=== PATIENT | male | born 1970 | race Two or more races ===

== ENCOUNTER 2024-06-18 20:17 | Inpatient (IN) | payer OTHER ==
[~2024-06-18] VITALS: Ht 175.3 cm; Wt 96.0 kg
[2024-06-18] MEDS: SODIUM CHLORIDE 0.9% 1,000 ML IV ONE (20:56)
--- NOTE | 2024-06-18 20:56 | ED.PDOC ---
History of Present Illness HPI Comments 53-year-old male came to ER for high blood pressure. Patient has a history of hypertension, takes losartan for it. For the past few hours, patient has been experiencing headaches, nape pain, nausea and numbness/ tingling of both upper extremities. Blood pressure taken at home showed 209/90 mmHg, Upon arrival at ER blood pressure was 239/103 mmHg and was bradycardic at 40's. Chief Complaint: High Blood Pressure Time Seen by MD: 20:56 Reviewed Notes: Nurses Notes Allergies: Coded Allergies: NO KNOWN ALLERGIES (Unverified , 06/18/24) Information Source: Patient Mode of Arrival: Ambulatory Severity: Moderate Timing: Hours Duration: Since onset Prehospital treatment: None Past Medical History PAST MEDICAL HISTORY: HTN Surgical History: Denies all surgeries Family History Family History: Reviewed,noncontributory to illness Social History Smoker: Non-Smoker Alcohol: Denies ETOH Use Drugs: Denies Drug Use Lives In: Home Constitutional: denies: chills, diaphoresis, fatigue, fever, malaise, sweats, weakness, others EENTM: denies: blurred vision, double vision, ear bleeding, ear discharge, ear drainage, ear pain, ear ringing, eye pain, eye redness, hearing loss, mouth pain, mouth swelling, nasal discharge, nose bleeding, nose congestion, nose pain, photophobia, tearing, throat pain, throat swelling, voice changes, others Respiratory: denies: cough, hemoptysis, orthopnea, SOB at rest, shortness of breath, SOB with excertion, stridor, wheezing, others Cardiovascular: denies: chest pain, dizzy spells, diaphoresis, Dyspnea on exertion, edema, irregular heart beat, left arm pain, lightheadedness, palpitations, PND, syncope, others Gastrointestinal: reports: nausea; denies: abdomen distended, abdominal pain, blood streaked bowels, constipated, diarrhea, dysphagia, difficulty swallowing, hematemesis, melena, poor appetite, poor fluid intake, rectal bleeding, rectal pain, vomiting, others Genitourinary: denies: burning, dysuria, flank pain, frequency, hematuria, incontinence, penile discharge, penile sore, pain, testicle pain, testicle swelling, urgency, others Neurological: reports: headache, numbness, tingling; denies: dizziness, fainting, left sided numbness, left sided weakness, paresthesia, pre-existing deficit, right sided numbness, right sided weakness, seizure, speech problems, tremors, weakness, others Musculoskeletal: reports: neck pain; denies: back pain, gout, joint pain, joint swelling, muscle pain, muscle stiffness, others Integumetry: denies: bruises, change in color, change in hair/nails, dryness, laceration, lesions, lumps, rash, wounds, others Allergic/Immunocompromised: denies: Difficulty Healing, Frequent Infections, Hives, Itching, others Hematologic/Lymphatic: denies: anemia, blood clots, easy bleeding, easy bruising, swollen glands, others Endocrine: denies: excessive hunger, excessive sweating, excessive thirst, excessive urination, flushing, intolerance to cold, intolerance to heat, unexplained weight gain, unexplained weight loss, others Psychiatric: denies: anxiety, bipolar disorder, depression, hopeless, panic disorder, schizophrenia, sleepless, suicidal, others Physical Exam General Appearance: No Apparent Distress, Normal HEENT: Normal ENT Inspection, Pharynx Normal, TMs Normal Neck: Full Range of Motion, Non-Tender, Normal, Normal Inspection Respiratory: Chest Non-Tender, Lungs Clear, No Accessory Muscle Use, No Respiratory Distress, Normal Breath Sounds Cardiovascular: No Edema, No JVD, No Murmur, No Gallop, Normal Peripheral Pulses, Regular Rate/Rhythm Breast Exam: Deferred Gastrointestinal: No Organomegaly, Non Tender, No Pulsatile Mass, Normal Bowel Sounds, Soft Genitalia: Deferred Pelvic: Deferred Rectal: Deferred Extremities: No calf tenderness, Normal capillary refill, Normal inspection, Normal range of motion, Non-tender, No pedal edema Musculoskeletal : Apperance: Normal Neurologic: Alert, seasonal clerk II-XII nml as Tested, No Motor Deficits, Normal Affect, Normal Mood, No Sensory Deficits Cerebellar Function: Normal Reflexes: Normal Skin: Dry, Normal Color, Warm Lymphatic: No Adenopathy Was a procedure done? Was a procedure done?: No EKG EKG : Pulse Rate (adult): 73 Cardiac Rhythm: NSR Hypertrophy: LVH Comments Ventricular bigeminy Differential Dx Considerations may include: Hypertensive urgency, anemia, electrolyte imbalance, CVA, TIA, bradycardia X-Ray, Labs, Meds, VS Vital Signs Date Time Temp Pulse Resp B/P (MAP) Pulse Ox O2 Delivery O2 Flow Rate FiO2 06/18/24 22:20 98.0 67 18 153/93 (113) 98 98.0 06/18/24 21:00 Room Air* 0 21 06/18/24 21:00 98.3 47 16 211/91 (131) 98 98.3 06/18/24 20:56 73 06/18/24 20:28 98.3 42 16 239/103 (148) 98 98.3 Lab Test 06/18/24 21:47 06/18/24 20:37 Range/Units White Blood Count 8.5 4.4-10.8 10^3/uL Red Blood Count 5.33 4.5-5.90 10^6/uL Hemoglobin 16.5 13.5-17.5 g/dL Hematocrit 47.8 41.0-53.0 % Mean Corpuscular Volume 89.7 80.0-100.0 fL Mean Corpuscular Hemoglobin 31.0 28.0-32.0 pg Mean Corpuscular Hemoglobin Concent 34.6 32.0-36.0 g/dL Red Cell Distribution Width 14.0 11.8-14.3 % Platelet Count 239 140-450 10^3/uL Mean Platelet Volume 7.5 6.9-10.8 fL Neutrophils (%) (Auto) 56.9 37.0-80.0 % Lymphocytes (%) (Auto) 33.3 10.0-50.0 % Monocytes (%) (Auto) 7.4 0.0-12.0 % Eosinophils (%) (Auto) 1.5 0.0-7.0 % Basophils (%) (Auto) 0.9 0.0-2.0 % Neutrophils # (Auto) 4.8 1.6-8.6 10 ^3/uL Lymphocytes # (Auto) 2.8 0.4-5.4 10 ^3/uL Monocytes # (Auto) 0.6 0-1.3 10 ^3/uL Eosinophils # (Auto) 0.1 0-0.8 10 ^3/uL Basophils # (Auto) 0.1 0-0.2 10 ^3/uL Nucleated Red Blood Cells 0.2 % Sodium Level 141 136-145 mmol/L Potassium Level 3.4 L 3.5-5.1 mmol/L Chloride Level 106 98-107 mmol/L Carbon Dioxide Level 28 20-31 mmol/L Anion Gap 7 5-15 Blood Urea Nitrogen 11 9-23 mg/dL Creatinine 0.88 0.700-1.30 mg/dL Glomerular Filtration Rate Calc 103 >90 mL/min BUN/Creatinine Ratio 12.5 10.0-20.0 Serum Glucose 153 H 74-106 mg/dL Lactic Acid Level 0.8 0.4-2.0 mmol/L Calcium Level 9.5 8.7-10.4 mg/dL Total Bilirubin 3.7 H 0.2-1.0 mg/dL Aspartate Amino Transferase (AST) 32 13-40 U/L Alanine Aminotransferase (ALT) 55 H 7-40 U/L Alkaline Phosphatase 110 46-116 U/L Troponin I High Sensitivity 23 </=54 ng/L B-Type Natriuretic Peptide 243.03 0-100 pg/mL Total Protein 7.2 5.7-8.2 g/dL Albumin 4.6 3.2-4.8 g/dL POC Glucose 149 H 70-106 mg/dl Current Medications Medications (Trade) Dose Ordered Sig/Brie Route Start Time Stop Time Status Last Admin Sodium Chloride 1,000 ml @ 1,000 mls/hr Q1H ONCE IV 06/18/24 21:00 06/18/24 21:59 DC 06/18/24 20:56 Metoclopramide HCl (Reglan Injection) 10 mg ONCE ONCE IV 06/18/24 21:00 06/18/24 21:01 DC 06/18/24 20:57 Acetaminophen (Tylenol Tablet) 650 mg ONCE ONCE PO 06/18/24 21:00 06/18/24 21:01 DC 06/18/24 20:57 Time of 1ST Reevaluation: 20:52 Reevaluation 1ST: Unchanged Patient Education/Counseling: Diagnosis, Treatment Family Education/Counseling: No Family Present Departure 1 Departure Time of Disposition: 22:40 (Patient presented with hypertension and symptoms concerning for hypertensive emergency. Patient is receiving iv blood pressure medications requiring intensive monitoring. Data: 1. I ordered and reviewed the result of at least 3 labs including a CBC, BMP, and Urinalysis. 2. I independently interpreted the following tests: CT Brain: Which appears benign. EKG which is Normal Sinus RhythmRisk:This patient has a high risk of morbidity due to further diagnostic testing or treatment and may suffer from an acute cardiac disorder. Workup reveals hypertensive emergency and patient should be admitted for further workup. and possible expert consultation. ) Impression: Primary Impression: Hypertensive emergency Disposition: 09 ADMITTED INPATIENT Admit to: Tele Condition: Guarded Critical Care Note Critical Care Time?: Yes (35 min-critical care time only) Critical care comment: Hypertensive urgency Authorized and Performed by: Thad Ewing MD Total critical care time: Approximately 37 minutes Due to a high probability of clinically significant, life threatening deterioration, the patient required my highest level of preparedness to intervene emergently and I personally spent this critical care time directly and personally managing the patient. This critical care time included obtaining a history; examining the patient; pulse oximetry; ordering and review of studies; arranging urgent treatment with development of a management plan; evaluation of patient's response to treatment; frequent reassessment; and, discussions with other providers. This critical care time was performed to assess and manage the high probability of imminent, life-threatening deterioration that could result in multi-organ failure. It was exclusive of separately billable procedures and treating other patients and teaching time. Please see my other sections and the rest of the note for further information on patient assessment and treatment. Stability Stability form required: No Heart Score Heart Score: Heart Score Response (Comments) Value History Moderate Suspicious 1 EKG Repolarization Disturb 1 Age 45-64 1 Risk Factors 1 or 2 risk factors 1 Troponin Normal limit 0 Total 4 I personally scribed for THAD EWING MD ([email or web address]) on 06/18/24 at 20:56. Electronically submitted by Adi Garcia ([email or web address]). THAD EWING MD Jun 18, 2024 20:56
[2024-06-18] MEDS: METOCLOPRAMIDE HCL 5MG/ml INJ 2ml VIAL IV ONE (20:57)
[2024-06-18] MEDS: ACETAMINOPHEN 325 MG TAB PO ONE (20:57)
--- NOTE | 2024-06-18 21:58 | DVH ---
CHEST RADIOGRAPH Indication: mark, htn, headache, Technique: Single frontal view of the chest was obtained Comparison: None FINDINGS: Lines and Tubes: None Lungs: No focal consolidation. Pleura: No effusion. No pneumothorax. Cardiomediastinal contours: Unremarkable Bones: No acute osseous abnormality. IMPRESSION: No acute cardiopulmonary disease.
[2024-06-18 22:06] LABS: Basophils # (auto) 0.1 10 ^3/uL (0-0.2); Basophils % (auto) 0.9 % (0.0-2.0); Eosinophils # (auto) 0.1 10 ^3/uL (0-0.8); Eosinophils % (auto) 1.5 % (0.0-7.0); Hematocrit 47.8 % (41.0-53.0); Hemoglobin 16.5 g/dL (13.5-17.5); Lymphocytes # (auto) 2.8 10 ^3/uL (0.4-5.4); Lymphocytes % (auto) 33.3 % (10.0-50.0); Mean Corpuscular Hgb Conc. 34.6 g/dL (32.0-36.0); Mean Corpuscular Volume 89.7 fL (80.0-100.0); Monocytes # (auto) 0.6 10 ^3/uL (0-1.3); Monocytes % (auto) 7.4 % (0.0-12.0); Neutrophils # (auto) 4.8 10 ^3/uL (1.6-8.6); Neutrophils % (auto) 56.9 % (37.0-80.0); Nucleated Red Blood Cells % 0.2 %; Platelet Count (auto) 239 10^3/uL (140-450); Red Blood Cells 5.33 10^6/uL (4.5-5.90); White Blood Cell 8.5 10^3/uL (4.4-10.8)
--- NOTE | 2024-06-18 22:06 | DVH ---
CT HEAD WITHOUT CONTRAST INDICATION: mark, htn, headache COMPARISON: None TECHNIQUE: CT of the head without intravenous contrast. RADIATION DOSE: CTDIvol: mGy, DLP: mGy*cm FINDINGS: There is no evidence of intracranial hemorrhage, infarct, extra-axial collection, mass effect, midl ine shift, herniation or hydrocephalus. The ventricles, sulci and cisterns are normal. The h[place]-white differentiation is normal. Visualized paranasal sinuses and mastoid air cells are clear. Soft tissue s and osseous structures are unremarkable. IMPRESSION: No intracranial abnormality identified.
[2024-06-18] MEDS: hydrALAZINE HCL 20 MG/ML VL IV ONE (22:15)
[2024-06-18 22:17] LABS: Albumin 4.6 g/dL (3.2-4.8); Alkaline Phosphatase 110 U/L (46-116); Anion Gap 7 (5-15); Aspartate Aminotransferase 32 U/L (13-40); BUN/Creatinine Ratio 12.5 (10.0-20.0); Blood Urea Nitrogen 11 mg/dL (9-23); Calcium 9.5 mg/dL (8.7-10.4); Carbon Dioxide 28 mmol/L (20-31); Chloride 106 mmol/L (98-107); Sodium 141 mmol/L (136-145); Total Protein 7.2 g/dL (5.7-8.2)
[2024-06-18 22:20] LABS: Alanine Aminotransferase 55 U/L (7-40); Bilirubin, Total 3.7 mg/dL (0.2-1.0); Glucose 153 mg/dL (74-106); Potassium 3.4 mmol/L (3.5-5.1)
[2024-06-18] MEDS ORDERED: HYDROcodone-ACET 5/325MG TAB PO PRN (23:45)
[2024-06-18] MEDS ORDERED: DOCUSATE SOD 100 MG CAP PO PRN (23:45)
[2024-06-18] MEDS ORDERED: ONDANSETRON HCL 4 MG/2 ML VIAL IV PRN (23:45)
[2024-06-18] MEDS ORDERED: ACETAMINOPHEN 325 MG TAB PO PRN (23:45)
[2024-06-18] MEDS: POTASSIUM CHL 20 Meq TABLET PO ONE (23:48)
--- NOTE | 2024-06-19 00:04 | DVHHP2 ---
History of Present Illness Reason for Visit: Hypertensive urgency History of Present Illness The patient is a 53-year-old male with past medical history of hypertension presented to [facility] ED for evaluation of her blood pressure. Patient reports he has been experiencing headache numbness, tingling of both upper extremities, elevated blood pressure taking at home showed 209/90, so EMS were called. Patient was seen evaluated in the ED data shows WBC 8.5, platelets 239, sodium 141, potassium three four, BUN 11, creatinine 0.88, GFR 103, glucose 153, total bilirubin 3.7, AST 32, ALT 55, troponin 23, BNP 243.03, blood pressure 239/103 trending down to 153/89, heart rate 68, temperature 98.0 F, O2 saturation 98% air. Head CT showed no intracranial abnormality. Patient was given hydralazine 10 mg IV x1, please see medication orders section in the computer. On my assessment, patient denied chest pain, no headache, no dizziness, no diaphoresis, no shortness of breaths, nausea, no vomiting, no fever, no chills. Patient was admitted for further evaluation medical managemen t. Past Medical History HTN Past Surgical History Denies all surgeries Family History Reviewed, noncontributory to the management of this case. Past Social History The patient lives at home, denies smoking, alcohol or illicit drugs abuse. Review of Systems Constitutional: No: Fever, Chills, Sweats, Weakness, Malaise, Other Eyes: No: Pain, Vision change, Conjunctivae inflammation, Eyelid inflammation, Other, Redness ENT: No: Ear pain, Ear discharge, Nose pain, Nose discharge, Nose congestion, Mouth pain, Mouth swelling, Throat pain, Throat swelling, Other Respiratory: No: Cough, Dry, Shortness of breath, SOB with excertion, Wheezing, Hemoptysis, Pleuritic Pain, Sputum, Wheezing, Other Cardiovascular: No: Chest Pain, Palpitations, Orthopnea, Paroxysmal Noc. Dyspnea, Edema, Lt Headedness, Other Gastrointestinal: Nausea; No: Vomiting, Abdominal Pain, Diarrhea, Constipation, Melena, Hematochezia, Other Genitourinary: No Dysuria, No Frequency, No Incontinence, No Hematuria, No Retention, No Other Musculoskeletal: neck pain; No: other, shoulder pain, arm pain, back pain, hand pain, leg pain, foot pain Skin: No: Rash, Lesions, Jaundice, Bruising, Other Neurological: Numbness, Other (Headache, tingling.); No: Weakness, Incoordination, Change in speech, Confusion, Seizures Allergies: Coded Allergies: NO KNOWN ALLERGIES (Unverified , 06/18/24) Medications Current Medications Medications Dose Ordered Sig/Brie Route Start Time Stop Time Status Last Admin Dose Admin Amlodipine Besylate 5 mg DAILY PO 06/19/24 10:00 Hydralazine HCl 10 mg Q6HP PRN IV 06/18/24 23:45 Sodium Chloride 10 ml Q8HR IV 06/19/24 06:00 Acetaminophen/ Hydrocodone Bitart 1 tab Q4HP PRN PO 06/18/24 23:45 Ondansetron HCl 4 mg Q4HP PRN IV 06/18/24 23:45 Docusate Sodium 100 mg BIDPRN PRN PO 06/18/24 23:45 Acetaminophen 650 mg Q6HP PRN PO 06/18/24 23:45 Exam Vital Signs Vital Signs Date Time Temp Pulse Resp B/P (MAP) Pulse Ox O2 Delivery O2 Flow Rate FiO2 06/18/24 22:20 98.0 67 18 153/93 (113) 98 98.0 06/18/24 21:00 Room Air* 0 21 General Appearance: Alert, Oriented X3, Cooperative, No acute distress HEENT: Atraumatic, PERRLA, EOMI, Mucous membr. moist/pink Respiratory: Clear to auscultation, Normal air movement Cardiovascular: Regular rate, Normal S1, Normal S2, No murmurs Abdominal: Normal bowel sounds, Soft, No tenderness, No hepatospenomegaly, No masses Extremities: No clubbing, No cyanosis, No edema, Normal pulses, No tenderness/swelling Skin: No rashes, No breakdown, No significant lesion Neuro: Normal gait, Normal speech, Strength at 5/5 X4 ext, Normal tone, Sensation intact, Cranial nerves 3-12 NL, Reflexes 2+ Psych/Mental Status: Mental status NL, Mood NL Labs/Xrays Labs Test 06/18/24 23:05 06/18/24 21:47 06/18/24 20:37 Range/Units Troponin I High Sensitivity 29 </=54 ng/L White Blood Count 8.5 4.4-10.8 10^3/uL Red Blood Count 5.33 4.5-5.90 10^6/uL Hemoglobin 16.5 13.5-17.5 g/dL Hematocrit 47.8 41.0-53.0 % Mean Corpuscular Volume 89.7 80.0-100.0 fL Mean Corpuscular Hemoglobin 31.0 28.0-32.0 pg Mean Corpuscular Hemoglobin Concent 34.6 32.0-36.0 g/dL Red Cell Distribution Width 14.0 11.8-14.3 % Platelet Count 239 140-450 10^3/uL Mean Platelet Volume 7.5 6.9-10.8 fL Neutrophils (%) (Auto) 56.9 37.0-80.0 % Lymphocytes (%) (Auto) 33.3 10.0-50.0 % Monocytes (%) (Auto) 7.4 0.0-12.0 % Eosinophils (%) (Auto) 1.5 0.0-7.0 % Basophils (%) (Auto) 0.9 0.0-2.0 % Neutrophils # (Auto) 4.8 1.6-8.6 10 ^3/uL Lymphocytes # (Auto) 2.8 0.4-5.4 10 ^3/uL Monocytes # (Auto) 0.6 0-1.3 10 ^3/uL Eosinophils # (Auto) 0.1 0-0.8 10 ^3/uL Basophils # (Auto) 0.1 0-0.2 10 ^3/uL Nucleated Red Blood Cells 0.2 % Sodium Level 141 136-145 mmol/L Potassium Level 3.4 L 3.5-5.1 mmol/L Chloride Level 106 98-107 mmol/L Carbon Dioxide Level 28 20-31 mmol/L Anion Gap 7 5-15 Blood Urea Nitrogen 11 9-23 mg/dL Creatinine 0.88 0.700-1.30 mg/dL Glomerular Filtration Rate Calc 103 >90 mL/min BUN/Creatinine Ratio 12.5 10.0-20.0 Serum Glucose 153 H 74-106 mg/dL Lactic Acid Level 0.8 0.4-2.0 mmol/L Calcium Level 9.5 8.7-10.4 mg/dL Total Bilirubin 3.7 H 0.2-1.0 mg/dL Aspartate Amino Transferase (AST) 32 13-40 U/L Alanine Aminotransferase (ALT) 55 H 7-40 U/L Alkaline Phosphatase 110 46-116 U/L B-Type Natriuretic Peptide 243.03 0-100 pg/mL Total Protein 7.2 5.7-8.2 g/dL Albumin 4.6 3.2-4.8 g/dL POC Glucose 149 H 70-106 mg/dl PATIENT: JU CARNEY ACCT: [id number] UNIT: [id number] : 1970 LOC: ER ROOM / BED: / AGE / SEX: 53 / M ADM STATUS: REG ER SERVICE 49 ORDERING PHYSICIAN: THAD VILLATORO MD PROCEDURE(s): HWOCT - HEAD WITHOUT CONTRAST REASON: mark, htn, headache ORDER NUMBER(s): [id number], ACCESSION NUMBER(s): [id number] CT HEAD WITHOUT CONTRAST INDICATION: mark, htn, headache COMPARISON: None TECHNIQUE: CT of the head without intravenous contrast. RADIATION DOSE: CTDIvol: mGy, DLP: mGy*cm FINDINGS: There is no evidence of intracranial hemorrhage, infarct, extra-axial collection, mass effect, midline shift, herniation or hydrocephalus. The ventricles, sulci and cisterns are normal. The [place]-white differentiation is normal. Visualized paranasal sinuses and mastoid air cells are clear. Soft tissu es and osseous structures are unremarkable. IMPRESSION: No intracranial abnormality identified. ORDERING PHYSICIAN: THAD VILLATORO MD PROCEDURE(s): CXRP - CHEST PORTABLE REASON: mark, htn, headache, ORDER NUMBER(s): [id number], ACCESSION NUMBER(s): [id number] CHEST RADIOGRAPH Indication: mark, htn, headache, Technique: Single frontal view of the chest was obtained Comparison: None FINDINGS: Lines and Tubes: None Lungs: No focal consolidation. Pleura: No effusion. No pneumothorax. Cardiomediastinal contours: Unremarkable Bones: No acute osseous abnormality. IMPRESSION: No acute cardiopulmonary disease. Assessment/Plan Assessment/Plan Hypertensive urgency Hyperglycemia Plan 1. Admit to telemetry unit 2. Breathing treatment 3. Pain control management 4. Management of fluids and electrolytes 5. Consultation for hospitalist 6. Diagnostic tests head CT 7. DVT prophylaxis-on aspirin 8. Repeat labs CBC, CMP in a.m. 9. Continue with current medical management 10. Treatment plan discussed with patient and RN. Patient verbalized understanding. Plan discussed with: Patient, Other (RN) My Orders Orders - ALEXIS SALGADO DNP Procedure Category Date Status Time Amlodipine Tablet PHA 06/19/24 In Process (Norvasc Tablet) 10:00 Hydralazine Injection PHA 06/18/24 In Process (Apresoline Inject 23:45 Allergies DINORAH 06/18/24 In Process 23:38 Code Status CODE 06/18/24 Transmitted 23:38 Sodium Chloride Lock PHA 06/19/24 In Process (Saline Lock Ns) 06:00 Oxygen Per Hour RT 06/18/24 Transmitted 23:38 Hydrocodone-Acet PHA 06/18/24 In Process 5/325mg Tab ([place] 23:45 Ondansetron Hcl PHA 06/18/24 In Process (Zofran) 23:45 Docusate Sodium PHA 06/18/24 In Process Capsule (Colace 23:45 Complete Blood Count LAB 06/19/24 Transmitted 04:00 Comprehensive LAB 06/19/24 Transmitted Metabolic Panel 04:00 Cardiac DIET 06/19/24 Transmitted Diet-2gna,Lofat,Lochol Breakfast Condition: Serious DINORAH 06/18/24 In Process 23:38 Acetaminophen Tablet PHA 06/18/24 In Process (Tylenol Tablet) 23:45 Bedrest With Bathroom DINORAH 06/18/24 In Process Privileg 23:38 Sequential DINORAH 06/18/24 In Process Compression Device Admit ADMIT 06/19/24 Verified 00:03 Nitroglycerin PHA 06/19/24 Verified Sublingual (Ntrostat 00:15 Morphine Sulfate PHA 06/19/24 Verified Injection 00:15 Stat Ekg For Chest DINORAH 06/19/24 Verified Pain 00:03 Notify Md Of Changes DINORAH 06/19/24 Verified From Base 00:03 Float Nurse For DINORAH 06/19/24 Verified 24 Hours 00:03 Emergency Dysrhythmia DINORAH 06/19/24 Verified Protocol 00:03 Rhythm Strips Once DINORAH 06/19/24 Verified Every Shift 00:03 Oxygen By Nasal RT 06/19/24 Verified Cannula 00:03 Problem List: (1) Hypertensive urgency (2) Hyperglycemia Date of Service: Jun 19, 2024 Billing Provider: ALEXIS SALGADO DNP Common Visit Codes: [id number] INP/OBS CARE (HIGH) ALEXIS SALGADO DNP Jun 19, 2024 00:04
[2024-06-19] MEDS ORDERED: NITROGLYCERIN 0.4 MG SL TAB SL PRN (00:15)
[2024-06-19] MEDS ORDERED: MORPHINE SULFATE INJ 2 MG/ml SYRG IV PRN (00:15)
[2024-06-19 04:22] LABS: Basophils # (auto) 0.1 10 ^3/uL (0-0.2); Basophils % (auto) 1.1 % (0.0-2.0); Eosinophils # (auto) 0.2 10 ^3/uL (0-0.8); Eosinophils % (auto) 2.7 % (0.0-7.0); Hematocrit 43.8 % (41.0-53.0); Hemoglobin 15.7 g/dL (13.5-17.5); Lymphocytes # (auto) 2.9 10 ^3/uL (0.4-5.4); Lymphocytes % (auto) 39.3 % (10.0-50.0); Mean Corpuscular Hemoglobin 31.7 pg (28.0-32.0); Mean Corpuscular Hgb Conc. 35.8 g/dL (32.0-36.0); Mean Corpuscular Volume 88.5 fL (80.0-100.0); Monocytes # (auto) 0.5 10 ^3/uL (0-1.3); Monocytes % (auto) 7.5 % (0.0-12.0); Neutrophils # (auto) 3.6 10 ^3/uL (1.6-8.6); Neutrophils % (auto) 49.4 % (37.0-80.0); Nucleated Red Blood Cells % 0.1 %; Platelet Count (auto) 207 10^3/uL (140-450); Red Blood Cells 4.95 10^6/uL (4.5-5.90); Red Cell Distribution Width 14.1 % (11.8-14.3); White Blood Cell 7.3 10^3/uL (4.4-10.8)
[2024-06-19 04:39] LABS: Albumin 4.2 g/dL (3.2-4.8); Alkaline Phosphatase 96 U/L (46-116); Anion Gap 9 (5-15); Aspartate Aminotransferase 29 U/L (13-40); BUN/Creatinine Ratio 15.8 (10.0-20.0); Blood Urea Nitrogen 12 mg/dL (9-23); Calcium 9.1 mg/dL (8.7-10.4); Carbon Dioxide 25 mmol/L (20-31); Sodium 141 mmol/L (136-145); Total Protein 6.7 g/dL (5.7-8.2)
[2024-06-19 04:46] LABS: Alanine Aminotransferase 49 U/L (7-40); Chloride 107 mmol/L (98-107); Glucose 133 mg/dL (74-106); Potassium 3.2 mmol/L (3.5-5.1)
[2024-06-19] MEDS: SODIUM CHLOR 0.9% PF (SALINE LOCK) 10ML VIAL/SYR IV SCH (06:16)
[2024-06-19 08:00] VITALS: PULSE 52; RESP 12; O2SAT 96
[2024-06-19] MEDS: amLODIPine BESYLATE 5 MG TAB PO SCH (10:35)
[2024-06-19 12:55] VITALS: BP 154/92; PULSE 69; RESP 17; TEMP 98.3; O2SAT 98
[2024-06-19] MEDS: hydrALAZINE HCL 20 MG/ML VL IV PRN (13:42)
--- NOTE | 2024-06-19 13:46 | DVHPN2 ---
Reviewed: Care Plan, H&P, Labs, Medications, Previous Orders, Radiology Changes from previous H/P or p: No Changes Eyes: No Pain, No Vision change, No Conjunctivae inflammation, No Eyelid inflammation, No Other, No Redness ENT: No Ear pain, No Ear discharge, No Nose pain, No Nose discharge, No Nose congestion, No Mouth pain, No Mouth swelling, No Throat pain, No Throat swelling, No Other Cardiovascular: No Chest Pain, No Palpitations, No Orthopnea, No Paroxysmal Noc. Dyspnea, No Edema, No Lt Headedness, No Other Respiratory: No Cough, No Dry, No Shortness of breath, No SOB with excertion, No Wheezing, No Hemoptysis, No Pleuritic Pain, No Sputum, No Other Gastrointestinal: Nausea; No Vomiting, No Abdominal Pain, No Diarrhea, No Constipation, No Melena, No Hematochezia, No Other Genitourinary: No Dysuria, No Frequency, No Incontinence, No Hematuria, No Retention, No Other Musculoskeletal: No other; neck pain; No shoulder pain, No arm pain, No back pain, No hand pain, No leg pain, No foot pain Skin: No Rash, No Lesions, No Jaundice, No Bruising, No Other Objective Vitals Vital Signs Date Time Temp Pulse Resp B/P (MAP) Pulse Ox O2 Delivery O2 Flow Rate FiO2 06/19/24 13:42 162/90 06/19/24 09:00 57 17 96 06/19/24 08:00 98.5 98.5 06/19/24 08:00 Room Air* 0 21 Intake/Output Intake and Output 06/19/24 07:00 Intake Total 1000 ml Output Total 800 ml Balance 200 ml Intake IV Total 1000 ml Output Urine Total 800 ml Medications Current Medications Medications Dose Ordered Sig/Brie Route Start Time Stop Time Status Last Admin Dose Admin Amlodipine Besylate 5 mg DAILY PO 06/19/24 10:00 06/19/24 10:35 5 MG Hydralazine HCl 10 mg Q6HP PRN IV 06/18/24 23:45 06/19/24 13:42 10 MG Sodium Chloride 10 ml Q8HR IV 06/19/24 06:00 06/19/24 13:29 10 ML Acetaminophen/ Hydrocodone Bitart 1 tab Q4HP PRN PO 06/18/24 23:45 Ondansetron HCl 4 mg Q4HP PRN IV 06/18/24 23:45 Docusate Sodium 100 mg BIDPRN PRN PO 06/18/24 23:45 Acetaminophen 650 mg Q6HP PRN PO 06/18/24 23:45 Nitroglycerin 0.4 mg Q5MINP PRN SL 06/19/24 00:15 Morphine Sulfate 2 mg Q30M PRN IV 06/19/24 00:15 Laboratory Results Laboratory Tests 06/19/24 03:57 Chemistry Test 06/18/24 21:47 06/19/24 03:57 Albumin 4.6 g/dL (3.2-4.8) 4.2 g/dL (3.2-4.8) Calcium Level 9.5 mg/dL (8.7-10.4) 9.1 mg/dL (8.7-10.4) Total Protein 7.2 g/dL (5.7-8.2) 6.7 g/dL (5.7-8.2) Cardiac Markers Test 06/18/24 21:47 B-Type Natriuretic Peptide 243.03 pg/mL (0-100) LFT Test 06/18/24 21:47 06/19/24 03:57 Alanine Aminotransferase (ALT) 55 U/L (7-40) H 49 U/L (7-40) H Alkaline Phosphatase 110 U/L (46-116) 96 U/L (46-116) Aspartate Amino Transferase (AST) 32 U/L (13-40) 29 U/L (13-40) Total Bilirubin 3.7 mg/dL (0.2-1.0) H 4.0 mg/dL (0.2-1.0) H Labs and/or images reviewed: Labs reviewed by me, Image(s) reviewed by me Assessment/Plan Assessment/Plan Hypertensive urgency with systolic 209, hydralazine amlodipine Hypertensive encephalopathy Chest x-ray negative CT head negative Plan discussed with: Patient Date of Service: Jun 19, 2024 Billing Provider: SEAMUS AGRAWAL MD Common Visit Codes: [id number] INP/OBS CARE(HIGH) SEAMUS AGRAWAL MD Jun 19, 2024 13:45
[2024-06-19] MEDS ORDERED: LOSA-535 PO (15:02)
[2024-06-19 17:20] VITALS: BP 154/70; PULSE 67; RESP 17; TEMP 98.5; O2SAT 98
[2024-06-19 21:29] VITALS: BP 142/67; PULSE 77; RESP 23; TEMP 98; O2SAT 98
[2024-06-19 21:38] VITALS: BP 135/87; PULSE 73; RESP 17; TEMP 98.3; O2SAT 95
[2024-06-19 22:43] VITALS: BP 135/87; PULSE 75; RESP 17; TEMP 98.3; O2SAT 95
[2024-06-20] VITALS (9 sets, daily range): BP systolic 117–174; BP diastolic 58–87; PULSE 39–80; RESP 16–20; TEMP 98–98.9; O2SAT 94–100
[2024-06-20] MEDS: POTASSIUM CHL 20 Meq TABLET PO ONE (01:37)
[2024-06-20 05:47] LABS: Albumin 4.4 g/dL (3.2-4.8); Alkaline Phosphatase 102 U/L (46-116); Anion Gap 12 (5-15); Aspartate Aminotransferase 26 U/L (13-40); BUN/Creatinine Ratio 17.4 (10.0-20.0); Blood Urea Nitrogen 16 mg/dL (9-23); Calcium 9.8 mg/dL (8.7-10.4); Carbon Dioxide 23 mmol/L (20-31); Chloride 104 mmol/L (98-107); Potassium 3.8 mmol/L (3.5-5.1); Sodium 139 mmol/L (136-145); Total Protein 7.1 g/dL (5.7-8.2)
[2024-06-20 05:51] LABS: Alanine Aminotransferase 52 U/L (7-40); Bilirubin, Total 3.5 mg/dL (0.2-1.0); Glucose 157 mg/dL (74-106)
--- NOTE | 2024-06-20 10:06 | DVHPN2 ---
Reviewed: Care Plan, H&P, Labs, Medications, Previous Orders, Radiology Changes from previous H/P or p: No Changes Eyes: No Pain, No Vision change, No Conjunctivae inflammation, No Eyelid inflammation, No Other, No Redness ENT: No Ear pain, No Ear discharge, No Nose pain, No Nose discharge, No Nose congestion, No Mouth pain, No Mouth swelling, No Throat pain, No Throat swelling, No Other Cardiovascular: No Chest Pain, No Palpitations, No Orthopnea, No Paroxysmal Noc. Dyspnea, No Edema, No Lt Headedness, No Other Respiratory: No Cough, No Dry, No Shortness of breath, No SOB with excertion, No Wheezing, No Hemoptysis, No Pleuritic Pain, No Sputum, No Other Gastrointestinal: Nausea Genitourinary: No Dysuria, No Frequency, No Incontinence, No Hematuria, No Retention, No Other Musculoskeletal: neck pain Skin: No Rash, No Lesions, No Jaundice, No Bruising, No Other Objective Vitals Vital Signs Date Time Temp Pulse Resp B/P (MAP) Pulse Ox O2 Delivery O2 Flow Rate FiO2 06/20/24 08:51 98.9 65 18 137/80 (99) 95 98.9 06/19/24 12:55 Nasal Cannula* 2 28 Intake/Output Intake and Output 06/20/24 07:00 Intake Total 900 ml Output Total 500 ml Balance 400 ml Intake Oral 900 ml Output Urine Total 500 ml # Voids 3 Medications Current Medications Medications Dose Ordered Sig/Brie Route Start Time Stop Time Status Last Admin Dose Admin Amlodipine Besylate 5 mg DAILY PO 06/19/24 10:00 06/19/24 10:35 5 MG Hydralazine HCl 10 mg Q6HP PRN IV 06/18/24 23:45 06/20/24 01:55 10 MG Sodium Chloride 10 ml Q8HR IV 06/19/24 06:00 06/20/24 05:19 10 ML Acetaminophen/ Hydrocodone Bitart 1 tab Q4HP PRN PO 06/18/24 23:45 Ondansetron HCl 4 mg Q4HP PRN IV 06/18/24 23:45 Docusate Sodium 100 mg BIDPRN PRN PO 06/18/24 23:45 Acetaminophen 650 mg Q6HP PRN PO 06/18/24 23:45 Nitroglycerin 0.4 mg Q5MINP PRN SL 06/19/24 00:15 Morphine Sulfate 2 mg Q30M PRN IV 06/19/24 00:15 Laboratory Results Laboratory Tests 06/19/24 03:57 06/20/24 04:45 Chemistry Test 06/20/24 04:45 Albumin 4.4 g/dL (3.2-4.8) Calcium Level 9.8 mg/dL (8.7-10.4) Total Protein 7.1 g/dL (5.7-8.2) LFT Test 06/20/24 04:45 Alanine Aminotransferase (ALT) 52 U/L (7-40) H Alkaline Phosphatase 102 U/L (46-116) Aspartate Amino Transferase (AST) 26 U/L (13-40) Total Bilirubin 3.5 mg/dL (0.2-1.0) H Labs and/or images reviewed: Labs reviewed by me, Image(s) reviewed by me Assessment/Plan Assessment/Plan Hypertensive urgency with systolic 209, hydralazine amlodipine blood pressure now around 130 Hypertensive encephalopathy Chest x-ray negative CT head negative Ventricular Bigeminy: Consult for Cardiology Plan discussed with: Patient Date of Service: Jun 20, 2024 Billing Provider: SEAMUS AGRAWAL MD Common Visit Codes: [id number] INP/OBS CARE(HIGH) SEAMUS AGRAWAL MD Jun 20, 2024 10:06
[2024-06-20 11:02] LABS: Triglycerides 136 mg/dL (< 150)
[2024-06-20 11:04] LABS: Cholesterol 192 mg/dL (< 200); HDL Cholesterol 44 mg/dL (40-59)
[2024-06-20 11:10] LABS: LDL Cholesterol 132 mg/dL (< 100)
--- NOTE | 2024-06-20 13:19 | DVHINCON2 ---
Date Seen: Jun 20, 2024 Referring Physician MD Ad Reason for Consultation Ventricular bigeminy History of Present Illness This is a 53-year-old male patient who presents to the emergency room with chief complaint of headache and nausea. 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 He also mentions feeling numbness in bilateral hands. Upon emergency room arrival, the patient was noted to have blood pressure readings as high as 239/103. Initial twelve lead electrocardiogram reveals normal sinus rhythm with bigeminy PVCs. Initial troponin level of 23ng/L with flat trend thereafter. Significant past medical history includes coronary artery disease status post PTCA X 1 TERESITA, hypertension, and obesity. The patient states he does not follow up with a field marketer in the outpatient setting. Past Medical History Past medical history reviewed. No other significant than mentioned above. Past Surgical History Left hip replacement Appendectomy Family History: Hypertension G8 MOTHER Family History Family history reviewed. Social History Denies the use of tobacco, alcohol or illicit drugs. Allergies: Coded Allergies: NO KNOWN ALLERGIES (Unverified , 06/18/24) Home Meds Reported Medications Losartan Potassium (Losartan Potassium) 100 Mg Tab, 1 TAB PO DAILY for BLOOD PRESSURE 06/19/24 Home Meds Home medications reviewed. Review of Systems Constitutional: No symptom reported Ears, Nose, & Throat: No symptom reported Eyes: No symptom reported Neurological: Headache Pulmonary/Respiratory: No symptoms reported Cardiovascular: No symptom reported Gastrointestinal: Nausea Genitourinary: No symptom reported Musculoskeletal: No symptom reported Skin: No symptom reported Psychiatric: No symptom reported Endocrine: No symptom reported Hematologic/Lymphatic: No symptom reported Vital Signs Vital Signs Date Time Temp Pulse Resp B/P (MAP) Pulse Ox O2 Delivery O2 Flow Rate FiO2 06/20/24 12:24 98.6 58 18 132/77 (95) 97 98.6 06/19/24 12:55 Nasal Cannula* 2 28 Physical Exam General Appearance: Cooperative. Well-developed. Well-nourished. No acute distress. Pulmonary/Respiratory: Clear, bilateral breaths sounds. Cardiovascular/Chest: Regular rate and rhythm. Peripheral Pulses: 2+ Radial (R). 2+ Radial (L). 2+ Pedal (R). 2+ Pedal (L) Abdominal Exam: Normal bowel sounds. Ankle Exam: Negative ankle edema Lower extremities: Negative lower extremity edema Neuro/Mental Status: A/OX4, coherent. Thoughts/Psych: Normal thought pattern. Appropriate mood and affect. Good judgment and insight. Appearance: No acute distress. Skin Exam: Normal inspection. Normal color. Warm and dry. Labs/Diagnostic Data Labs Test 06/20/24 04:45 06/19/24 03:57 06/19/24 00:47 06/18/24 21:47 Range/Units Sodium Level 139 136-145 mmol/L Potassium Level 3.8 3.5-5.1 mmol/L Chloride Level 104 98-107 mmol/L Carbon Dioxide Level 23 20-31 mmol/L Anion Gap 12 5-15 Blood Urea Nitrogen 16 9-23 mg/dL Creatinine 0.92 0.700-1.30 mg/dL Glomerular Filtration Rate Calc 99 >90 mL/min BUN/Creatinine Ratio 17.4 10.0-20.0 Serum Glucose 157 H 74-106 mg/dL Calcium Level 9.8 8.7-10.4 mg/dL Magnesium Level 2.2 1.6-2.6 mg/dL Total Bilirubin 3.5 H 0.2-1.0 mg/dL Aspartate Amino Transferase (AST) 26 13-40 U/L Alanine Aminotransferase (ALT) 52 H 7-40 U/L Alkaline Phosphatase 102 46-116 U/L Total Protein 7.1 5.7-8.2 g/dL Albumin 4.4 3.2-4.8 g/dL Triglycerides Level 136 < 150 mg/dL Cholesterol Level 192 < 200 mg/dL LDL Cholesterol 132 H < 100 mg/dL HDL Cholesterol 44 40-59 mg/dL Thyroid Stimulating Hormone (TSH) 3.81 0.55-4.78 uIU/mL White Blood Count 7.3 4.4-10.8 10^3/uL Red Blood Count 4.95 4.5-5.90 10^6/uL Hemoglobin 15.7 13.5-17.5 g/dL Hematocrit 43.8 41.0-53.0 % Mean Corpuscular Volume 88.5 80.0-100.0 fL Mean Corpuscular Hemoglobin 31.7 28.0-32.0 pg Mean Corpuscular Hemoglobin Concent 35.8 32.0-36.0 g/dL Red Cell Distribution Width 14.1 11.8-14.3 % Platelet Count 207 140-450 10^3/uL Mean Platelet Volume 7.5 6.9-10.8 fL Neutrophils (%) (Auto) 49.4 37.0-80.0 % Lymphocytes (%) (Auto) 39.3 10.0-50.0 % Monocytes (%) (Auto) 7.5 0.0-12.0 % Eosinophils (%) (Auto) 2.7 0.0-7.0 % Basophils (%) (Auto) 1.1 0.0-2.0 % Neutrophils # (Auto) 3.6 1.6-8.6 10 ^3/uL Lymphocytes # (Auto) 2.9 0.4-5.4 10 ^3/uL Monocytes # (Auto) 0.5 0-1.3 10 ^3/uL Eosinophils # (Auto) 0.2 0-0.8 10 ^3/uL Basophils # (Auto) 0.1 0-0.2 10 ^3/uL Nucleated Red Blood Cells 0.1 % Troponin I High Sensitivity 30 </=54 ng/L Lactic Acid Level 0.8 0.4-2.0 mmol/L B-Type Natriuretic Peptide 243.03 0-100 pg/mL Test 06/18/24 20:37 Range/Units POC Glucose 149 H 70-106 mg/dl Assessment Sinus rhythm with bigeminy PVCs Coronary artery disease status post PTCA x 1 TERESITA Hypertensive emergency Hyperlipidemia Obesity Plan/Recommendation We will continue with the following plan/recommendations (Dr. Pompa): * Transthoracic echocardiogram to evaluate cardiac function * Aggressive blood pressure control * Single antiplatelet therapy and lipid-lowering agent * Beta-cristian and magnesium replacement * Close Cardiac surveillance Case discussed with . Thank you for allowing us to care for this patient. Please call with any questions or concerns. Critical care time spent: 44 minutes This medical document was created using an electronic medical record system with voice recognition software and computerized dictation system. Although this document has been carefully reviewed, there might still be some phonetic and typographical errors. Occasional wrong-word or ``sound-alike substitutions may have occurred due to the inherent limitations of voice recognition software. These areas are purely typographical due to imperfections of the software programs and do not reflect any compromise in the patient's medical care. Please read the chart carefully and recognize, using context, where these substitutions have occurred. Plan discussed with: Patient NYHA Physical activity limitations: NA Date of Service: Jun 20, 2024 Billing Provider: ROXANNA MARKS Cardiology Common Codes: [id number] INP/OBS CARE (High) Cardiology Consultation Codes: [id number] CONSULT <45MIN ROXANNA MARKS Jun 20, 2024 13:19
[2024-06-20] MEDS: ATORVASTATIN 20 MG TAB PO SCH (22:40)
[2024-06-20] MEDS: METOPROLOL TARTRATE 25 MG TAB PO SCH (23:21)
[2024-06-21] VITALS (8 sets, daily range): BP systolic 125–163; BP diastolic 59–86; PULSE 58–77; RESP 14–18; TEMP 97.7–98.9; O2SAT 95–99
--- NOTE | 2024-06-21 08:06 | ECG ---
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
--- NOTE | 2024-06-21 10:17 | DVHPN2 ---
Reviewed: Care Plan, H&P, Labs, Medications, Previous Orders, Radiology Changes from previous H/P or p: No Changes Eyes: No Pain, No Vision change, No Conjunctivae inflammation, No Eyelid inflammation, No Other, No Redness ENT: No Ear pain, No Ear discharge, No Nose pain, No Nose discharge, No Nose congestion, No Mouth pain, No Mouth swelling, No Throat pain, No Throat swelling, No Other Cardiovascular: No Chest Pain, No Palpitations, No Orthopnea, No Paroxysmal Noc. Dyspnea, No Edema, No Lt Headedness, No Other Respiratory: No Cough, No Dry, No Shortness of breath, No SOB with excertion, No Wheezing, No Hemoptysis, No Pleuritic Pain, No Sputum, No Other Gastrointestinal: Nausea Genitourinary: No Dysuria, No Frequency, No Incontinence, No Hematuria, No Retention, No Other Musculoskeletal: neck pain Skin: No Rash, No Lesions, No Jaundice, No Bruising, No Other Objective Vitals Vital Signs Date Time Temp Pulse Resp B/P (MAP) Pulse Ox O2 Delivery O2 Flow Rate FiO2 06/21/24 08:30 98.2 69 16 152/75 (100) 97 98.2 06/20/24 20:00 Room Air* 0 21 Intake/Output Intake and Output 06/21/24 07:00 Intake Total 1200 ml Balance 1200 ml Intake Oral 1200 ml # Voids 5 # Bowel Movements 1 Medications Current Medications Medications Dose Ordered Sig/Brie Route Start Time Stop Time Status Last Admin Dose Admin Amlodipine Besylate 5 mg DAILY PO 06/19/24 10:00 06/20/24 11:55 5 MG Hydralazine HCl 10 mg Q6HP PRN IV 06/18/24 23:45 06/20/24 22:39 10 MG Sodium Chloride 10 ml Q8HR IV 06/19/24 06:00 06/21/24 05:39 10 ML Acetaminophen/ Hydrocodone Bitart 1 tab Q4HP PRN PO 06/18/24 23:45 Ondansetron HCl 4 mg Q4HP PRN IV 06/18/24 23:45 Docusate Sodium 100 mg BIDPRN PRN PO 06/18/24 23:45 Acetaminophen 650 mg Q6HP PRN PO 06/18/24 23:45 Nitroglycerin 0.4 mg Q5MINP PRN SL 06/19/24 00:15 Morphine Sulfate 2 mg Q30M PRN IV 06/19/24 00:15 Metoprolol Tartrate 12.5 mg BID PO 06/20/24 22:00 Magnesium Oxide 400 mg DAILY PO 06/21/24 10:00 Aspirin 81 mg DAILY PO 06/21/24 10:00 Atorvastatin Calcium 20 mg HS PO 06/20/24 22:00 06/20/24 22:40 20 MG Hydrochlorothiazide 12.5 mg DAILY PO 06/21/24 10:00 Laboratory Results Laboratory Tests 06/19/24 03:57 06/20/24 04:45 Labs and/or images reviewed: Labs reviewed by me, Image(s) reviewed by me Assessment/Plan Assessment/Plan Hypertensive urgency with systolic 209, hydralazine amlodipine blood pressure now around 130 Hypertensive encephalopathy Chest x-ray negative CT head negative Ventricular Bigeminy: Consult for Cardiology Dr Peña banerjee, placed on magnesium oxide aspirin Lipitor hydrochlorothiazide and metoprolol Echocardiogram pending Plan discussed with: Patient Date of Service: Jun 21, 2024 Billing Provider: SEAMUS AGRAWAL MD Common Visit Codes: [id number] INP/OBS CARE(HIGH) SEAMUS AGRAWAL MD Jun 21, 2024 10:17
[2024-06-21] MEDS: MAGNESIUM OXIDE 400 MG TAB PO SCH (10:54)
[2024-06-21] MEDS: hydroCHLOROthiazide 25 MG TAB PO SCH (10:55)
[2024-06-21] MEDS: ASPirin 81 mg TAB PO SCH (10:56)
--- NOTE | 2024-06-21 11:48 | DVHSR ---
APPROVED REPORT EXAM: Two-dimensional and M-mode echocardiogram with Doppler and color Doppler. Blood Pressure: 138/65 mmHg INDICATION Evaluate Cardiac function RISK FACTORS Height: 5'9", Weight: 210 DIMENSIONS LVDd5.6 (3.8-5.7cm)LA (2D)4.8 (1.9-4.0cm)Aortic Root2.0 (2.0-3.7cm) LVDs4.0 (2.5-4.0cm)LA (MM) (1.9-4.0cm)Aortic Cusp Exc1.8 (1.5-2.0cm) EF (%) 54.0 (55-70%)Rt. Atrium4.5 (1.9-4.0cm)Asc. Aorta cm IVSd1.3 (0.7-1.1cm)RV (D) (1.8-2.4cm) PWd1.0 (0.7-1.1cm) Mitral Valve MitralMitral Stenosis E wave0.85m/sMV Mean GR.mmHg A wave1.11m/sMV Peak GR.mmHg E/A ratio0.82D MVAcm2 DECEL [id number] 1/2 Timems Aortic Valve Aortic ValveAortic Stenosis V10.91m/[place] Mean GR.7mmHg V21.76m/[place] Peak GR.12mmHg LVOT Diameter2.0 (1.8-2.4cm)Doppler AVA1.62cm2 Other Information Quality : Technically LimitedRhythm : Technically limited study due to patient position.body habitus. Conclusion lvef 60% by visual estimate moderate concentricl LVH grade 1 diastolic dysfunction normal rv function left atrium enlarged mild no severe valve abnormalities noted
[2024-06-21 12:03] LABS: Basophils # (auto) 0.1 10 ^3/uL (0-0.2); Eosinophils # (auto) 0 10 ^3/uL (0-0.8); Eosinophils % (auto) 0.5 % (0.0-7.0); Hemoglobin 16.4 g/dL (13.5-17.5); Lymphocytes # (auto) 2.1 10 ^3/uL (0.4-5.4); Lymphocytes % (auto) 27.8 % (10.0-50.0); Mean Corpuscular Hemoglobin 31.5 pg (28.0-32.0); Mean Corpuscular Hgb Conc. 34.9 g/dL (32.0-36.0); Mean Corpuscular Volume 90.3 fL (80.0-100.0); Monocytes # (auto) 0.5 10 ^3/uL (0-1.3); Monocytes % (auto) 6.2 % (0.0-12.0); Neutrophils # (auto) 4.9 10 ^3/uL (1.6-8.6); Neutrophils % (auto) 64.5 % (37.0-80.0); Platelet Count (auto) 244 10^3/uL (140-450); Red Blood Cells 5.21 10^6/uL (4.5-5.90); Red Cell Distribution Width 14.2 % (11.8-14.3); White Blood Cell 7.5 10^3/uL (4.4-10.8)
[2024-06-21 12:17] LABS: Anion Gap 7 (5-15); Carbon Dioxide 30 mmol/L (20-31); Chloride 104 mmol/L (98-107); Potassium 4.1 mmol/L (3.5-5.1); Sodium 141 mmol/L (136-145)
[2024-06-21 12:18] LABS: Calcium 9.8 mg/dL (8.7-10.4)
[2024-06-21 12:23] LABS: BUN/Creatinine Ratio 19.6 (10.0-20.0); Blood Urea Nitrogen 20 mg/dL (9-23); Glucose 183 mg/dL (74-106)
--- NOTE | 2024-06-21 13:13 | DVHPN2 ---
Consult Progress Note Subjective Other Systems: Patient in normal sinus rhythm on monitor worker Denies any cardiac symptoms at time of assessment Objective vital signs Vital Sign Date Time Temp Pulse Resp B/P (MAP) Pulse Ox O2 Delivery O2 Flow Rate FiO2 06/21/24 10:55 152/75 06/21/24 10:55 70 06/21/24 08:30 98.2 16 97 98.2 06/20/24 20:00 Room Air* 0 21 Total Intake and Output 06/20/24 06/20/24 06/21/24 15:00 23:00 07:00 Intake Total 400 ml 800 ml Balance 400 ml 800 ml medications Current Medications Medications Dose Ordered Sig/Brie Route Start Time Stop Time Status Last Admin Dose Admin Amlodipine Besylate 5 mg DAILY PO 06/19/24 10:00 06/21/24 10:55 5 MG Hydralazine HCl 10 mg Q6HP PRN IV 06/18/24 23:45 06/20/24 22:39 10 MG Sodium Chloride 10 ml Q8HR IV 06/19/24 06:00 06/21/24 05:39 10 ML Acetaminophen/ Hydrocodone Bitart 1 tab Q4HP PRN PO 06/18/24 23:45 Ondansetron HCl 4 mg Q4HP PRN IV 06/18/24 23:45 Docusate Sodium 100 mg BIDPRN PRN PO 06/18/24 23:45 Acetaminophen 650 mg Q6HP PRN PO 06/18/24 23:45 Nitroglycerin 0.4 mg Q5MINP PRN SL 06/19/24 00:15 Morphine Sulfate 2 mg Q30M PRN IV 06/19/24 00:15 Metoprolol Tartrate 12.5 mg BID PO 06/20/24 22:00 06/21/24 10:55 12.5 MG Magnesium Oxide 400 mg DAILY PO 06/21/24 10:00 06/21/24 10:54 400 MG Aspirin 81 mg DAILY PO 06/21/24 10:00 06/21/24 10:56 81 MG Atorvastatin Calcium 20 mg HS PO 06/20/24 22:00 06/20/24 22:40 20 MG Hydrochlorothiazide 12.5 mg DAILY PO 06/21/24 10:00 06/21/24 10:55 12.5 MG Examination: GENERAL:Normal, LUNGS:Normal, CVS:Normal, NEURO:Normal laboratory and microbiology Laboratory Tests 06/21/24 11:40 Test 06/21/24 11:40 Range/Units Serum Glucose 183 H 74-106 mg/dL Problem List/Assessment/Plan Problem List/Assessment/Plan Sinus rhythm with bigeminy PVCs Coronary artery disease status post PTCA x 1 TERESITA Hypertensive emergency, resolved Hyperlipidemia Hypokalemia, replaced Obesity Plan/Recommendation (Dr. Pompa): * Transthoracic echocardiogram reveals EF 60% with grade 1 diastolic dysfunction * Aggressive blood pressure control * Single antiplatelet therapy and lipid-lowering agent * Beta-cristian and magnesium replacement * Close Cardiac surveillance Ectopy has improved on monitor worker with initiation of low-dose beta-cristian and magnesium. The patient denies any cardiac symptoms. Continue with blood pressure control, titrate as tolerated. There is no further inpatient cardiac workup indicated at this time. Cardiology will sign off. Please reconsult if needed. Thank you for allowing us to care for this patient. Please call with any questions or concerns. This medical document was created using an electronic medical record system with voice recognition software and computerized dictation system. Although this document has been carefully reviewed, there might still be some phonetic and typographical errors. Occasional wrong-word or ``sound-alike substitutions may have occurred due to the inherent limitations of voice recognition software. These areas are purely typographical due to imperfections of the software programs and do not reflect any compromise in the patient's medical care. Please read the chart carefully and recognize, using context, where these substitutions have occurred. Plan discussed with: Patient Date of Service: Jun 21, 2024 Billing Provider: ROXANNA MARKS Common Visit Codes: [id number] INP/OBS CARE(HIGH) ROXANNA MARKS Jun 21, 2024 13:13
--- NOTE | 2024-06-21 14:51 | ECG ---
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
--- NOTE | 2024-06-21 15:30 | ECG ---
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
--- NOTE | 2024-06-21 15:30 | ECG ---
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
--- NOTE | 2024-06-21 15:31 | ECG ---
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
[2024-06-21] MEDS: METOPROLOL TARTRATE 25 MG TAB PO SCH (22:06)
[2024-06-22 01:00] VITALS: BP 137/86; PULSE 53; RESP 19; TEMP 98.1; O2SAT 98
[2024-06-22 05:00] VITALS: BP 140/82; PULSE 49; RESP 18; TEMP 97.6; O2SAT 98
[2024-06-22 08:00] VITALS: PULSE 58
--- NOTE | 2024-06-22 08:34 | DVHPN2 ---
Reviewed: Care Plan, H&P, Labs, Medications, Previous Orders, Radiology Changes from previous H/P or p: No Changes Eyes: No Pain, No Vision change, No Conjunctivae inflammation, No Eyelid inflammation, No Other, No Redness ENT: No Ear pain, No Ear discharge, No Nose pain, No Nose discharge, No Nose congestion, No Mouth pain, No Mouth swelling, No Throat pain, No Throat swelling, No Other Cardiovascular: No Chest Pain, No Palpitations, No Orthopnea, No Paroxysmal Noc. Dyspnea, No Edema, No Lt Headedness, No Other Respiratory: No Cough, No Dry, No Shortness of breath, No SOB with excertion, No Wheezing, No Hemoptysis, No Pleuritic Pain, No Sputum, No Other Gastrointestinal: Nausea Genitourinary: No Dysuria, No Frequency, No Incontinence, No Hematuria, No Retention, No Other Musculoskeletal: neck pain Skin: No Rash, No Lesions, No Jaundice, No Bruising, No Other Objective Vitals Vital Signs Date Time Temp Pulse Resp B/P (MAP) Pulse Ox O2 Delivery O2 Flow Rate FiO2 06/22/24 05:00 97.6 49 18 140/82 (101) 98 97.6 06/21/24 20:00 Room Air* 0 21 Intake/Output Intake and Output 06/22/24 07:00 Intake Total 275 ml Balance 275 ml Intake Oral 275 ml # Voids 5 # Bowel Movements 1 Medications Current Medications Medications Dose Ordered Sig/Brie Route Start Time Stop Time Status Last Admin Dose Admin Amlodipine Besylate 5 mg DAILY PO 06/19/24 10:00 06/21/24 10:55 5 MG Hydralazine HCl 10 mg Q6HP PRN IV 06/18/24 23:45 06/20/24 22:39 10 MG Sodium Chloride 10 ml Q8HR IV 06/19/24 06:00 06/22/24 06:10 10 ML Acetaminophen/ Hydrocodone Bitart 1 tab Q4HP PRN PO 06/18/24 23:45 Ondansetron HCl 4 mg Q4HP PRN IV 06/18/24 23:45 Docusate Sodium 100 mg BIDPRN PRN PO 06/18/24 23:45 Acetaminophen 650 mg Q6HP PRN PO 06/18/24 23:45 Nitroglycerin 0.4 mg Q5MINP PRN SL 06/19/24 00:15 Morphine Sulfate 2 mg Q30M PRN IV 06/19/24 00:15 Magnesium Oxide 400 mg DAILY PO 06/21/24 10:00 06/21/24 10:54 400 MG Aspirin 81 mg DAILY PO 06/21/24 10:00 06/21/24 10:56 81 MG Atorvastatin Calcium 20 mg HS PO 06/20/24 22:00 06/21/24 22:06 20 MG Hydrochlorothiazide 12.5 mg DAILY PO 06/21/24 10:00 06/21/24 10:55 12.5 MG Metoprolol Tartrate 25 mg BID PO 06/21/24 22:00 06/21/24 22:06 25 MG Laboratory Results Laboratory Tests 06/21/24 11:40 Chemistry Test 06/21/24 11:40 Calcium Level 9.8 mg/dL (8.7-10.4) Magnesium Level 2.2 mg/dL (1.6-2.6) Labs and/or images reviewed: Labs reviewed by me, Image(s) reviewed by me Assessment/Plan Assessment/Plan Hypertensive urgency with systolic 209, hydralazine amlodipine blood pressure now around 130 Hypertensive encephalopathy Chest x-ray negative CT head negative Ventricular Bigeminy: Consult for Cardiology Dr Peña banerjee, placed on magnesium oxide aspirin Lipitor hydrochlorothiazide and metoprolol Echocardiogram 60 percent ejection fraction Ectopy improved with magnesium and low-dose beta cristian Cardiology cleared for discharge Plan discussed with: Patient Date of Service: Jun 22, 2024 Billing Provider: SEAMUS AGRAWAL MD Common Visit Codes: [id number] INP/OBS CARE(HIGH) SEAMUS AGRAWAL MD Jun 22, 2024 08:34
--- NOTE | 2024-06-22 08:38 | DVHDS2 ---
Discharge Summary Date of Admission Jun 19, 2024 at 00:03 Date of Discharge: Jun 22, 2024 Admitting Diagnosis Elevated blood pressure Wounds: None Labs/Diagnostic Data: Laboratory Results Test 06/21/24 11:40 06/20/24 04:45 06/19/24 00:47 06/18/24 21:47 White Blood Count 7.5 10^3/uL (4.4-10.8) Red Blood Count 5.21 10^6/uL (4.5-5.90) Hemoglobin 16.4 g/dL (13.5-17.5) Hematocrit 47.0 % (41.0-53.0) Mean Corpuscular Volume 90.3 fL (80.0-100.0) Mean Corpuscular Hemoglobin 31.5 pg (28.0-32.0) Mean Corpuscular Hemoglobin Concent 34.9 g/dL (32.0-36.0) Red Cell Distribution Width 14.2 % (11.8-14.3) Platelet Count 244 10^3/uL (140-450) Mean Platelet Volume 7.7 fL (6.9-10.8) Neutrophils (%) (Auto) 64.5 % (37.0-80.0) Lymphocytes (%) (Auto) 27.8 % (10.0-50.0) Monocytes (%) (Auto) 6.2 % (0.0-12.0) Eosinophils (%) (Auto) 0.5 % (0.0-7.0) Basophils (%) (Auto) 1.0 % (0.0-2.0) Neutrophils # (Auto) 4.9 10 ^3/uL (1.6-8.6) Lymphocytes # (Auto) 2.1 10 ^3/uL (0.4-5.4) Monocytes # (Auto) 0.5 10 ^3/uL (0-1.3) Eosinophils # (Auto) 0 10 ^3/uL (0-0.8) Basophils # (Auto) 0.1 10 ^3/uL (0-0.2) Nucleated Red Blood Cells 0.0 % Sodium Level 141 mmol/L (136-145) Potassium Level 4.1 mmol/L (3.5-5.1) Chloride Level 104 mmol/L (98-107) Carbon Dioxide Level 30 mmol/L (20-31) Anion Gap 7 (5-15) Blood Urea Nitrogen 20 mg/dL (9-23) Creatinine 1.02 mg/dL (0.700-1.30) Glomerular Filtration Rate Calc 88 mL/min (>90) BUN/Creatinine Ratio 19.6 (10.0-20.0) Serum Glucose 183 mg/dL (74-106) Calcium Level 9.8 mg/dL (8.7-10.4) Magnesium Level 2.2 mg/dL (1.6-2.6) Total Bilirubin 3.5 mg/dL (0.2-1.0) Aspartate Amino Transferase (AST) 26 U/L (13-40) Alanine Aminotransferase (ALT) 52 U/L (7-40) Alkaline Phosphatase 102 U/L (46-116) Total Protein 7.1 g/dL (5.7-8.2) Albumin 4.4 g/dL (3.2-4.8) Triglycerides Level 136 mg/dL (< 150) Cholesterol Level 192 mg/dL (< 200) LDL Cholesterol 132 mg/dL (< 100) HDL Cholesterol 44 mg/dL (40-59) Thyroid Stimulating Hormone (TSH) 3.81 uIU/mL (0.55-4.78) Troponin I High Sensitivity 30 ng/L (</=54) Lactic Acid Level 0.8 mmol/L (0.4-2.0) B-Type Natriuretic Peptide 243.03 pg/mL (0-100) Test 06/18/24 20:37 POC Glucose 149 mg/dl (70-106) Other Laboratory Tests 06/21/24 11:40 Brief Hx & Hospital Course: 53-year-old male with a history of hypertension came in complaining of elevated blood pressure systolic over 209 treated with a hydralazine amlodipine blood pressure became normal around 130 CT head negative chest x-ray negative patient had hypertensive encephalopathy which has resolved during the hospital course he developed ventricular bigeminy cardiology consult by Dr. Carney placed on magnesium oxide aspirin Lipitor and hydrochlorothiazide and low-dose metoprolol with a which he has improved echocardiogram 60 percent ejection fraction. Cleared for discharge by Cardiology at the time of discharge patient is asymptomatic. Prescription transmitted to the pharmacy. He was advised to follow up with his primary Dr Consults/Reason for consult Cardiology Operations or Procedures Echocardiogram Condition at Discharge: Fair Final Diagnosis/Problems List Hypertensive urgency with systolic 209, hydralazine amlodipine blood pressure now around 130 Hypertensive encephalopathy Chest x-ray negative CT head negative Ventricular Bigeminy: Consult for Cardiology Dr Pompa appreciated, placed on magnesium oxide aspirin Lipitor hydrochlorothiazide and metoprolol Echocardiogram 60 percent ejection fraction Ectopy improved with magnesium and low-dose beta cristian Discharge Disposition: Home Discharge Instruct/Medications Diet: Cardiac 2g Na,low cholest Activity: Light activity Follow Up/Referral: Follow up with your primary Dr in one week Use medications as prescribed Medications: Transmitted to the pharmacy 35 (Time taken for discharge summary 35 minutes) Discharge Statement: "Patient was advised to return to the ER or call 911 if any headaches, dizziness, shortness of breath, chest pain, abdominal pain, bleeding, fevers, or worsening of medical condition. Patient was counseled about treatment plan, medications, possible side effects, patientverbalized understanding. All questions were answered to the best of my ability. This discharge took greater then 30 minutes in planning, reviewing documentation, counseling the patient, and discussing with other team members." ASSESSMENT ASSESSMENT Hospital Course Improved Assessment Hypertensive urgency with systolic 209, hydralazine amlodipine blood pressure now around 130 Hypertensive encephalopathy Chest x-ray negative CT head negative Ventricular Bigeminy: Consult for Cardiology Dr Pompa appreciated, placed on magnesium oxide aspirin Lipitor hydrochlorothiazide and metoprolol Echocardiogram 60 percent ejection fraction Ectopy improved with magnesium and low-dose beta cristian Date of Service: Jun 22, 2024 Billing Provider: SEAMUS AGRAWAL MD Common Visit Codes: 31358-TIY/OBS DISCH DAY >30min SEAMUS AGRAWAL MD Jun 22, 2024 08:38
[2024-06-22 09:00] VITALS: BP 141/84; PULSE 56; RESP 17; TEMP 98.2; O2SAT 98
[2024-06-22] MEDS ORDERED: MAGN400C4 PO (09:12)
[2024-06-22] MEDS ORDERED: METO25TA5 PO (09:12)
[2024-06-22] MEDS ORDERED: ATOR20TA PO (09:12)
[2024-06-22 13:00] VITALS: BP 159/93; PULSE 60; RESP 18; TEMP 97.9; O2SAT 98
[2024-06-22 13:08] VITALS: BP 159/93; PULSE 68; RESP 18; TEMP 97.9; O2SAT 98
== END 2024-06-22 14:50 | disposition home or self-care (01) | DRG 199 ==
LOC: ER 20:17 → OVERFLOW 06-19 00:03 → TELE-WESTW 06-19 22:40 → TELE-EAST 06-21 02:50
PROVIDERS: ADMIT Family Medicine; ATTEND Family Medicine
DX: I16.1 Hypertensive emergency (principal); I67.4 Hypertensive encephalopathy; I49.3 Ventricular premature depolarization; I25.10 Atherosclerotic heart disease of native coronary artery without angina pectoris; R73.9 Hyperglycemia, unspecified; E78.5 Hyperlipidemia, unspecified; E66.9 Obesity, unspecified; Z98.61 Coronary angioplasty status; Z96.642 Presence of left artificial hip joint; Z82.49 Family history of ischemic heart disease and other diseases of the circulatory system; Z79.899 Other long term (current) drug therapy; Z68.31 Body mass index [BMI] 31.0-31.9, adult
CPT/HCPCS: 36415; 70450; 71045; 80048; 80053; 80061; 82962; 83605; 83735; 83880; 84443; 84484; 85025; 93005; 93306; 96361; 96374; 99291; G0378